=== PATIENT | female | born 1965 | race Caucasian/White ===

== ENCOUNTER 2022-03-11 15:43 | Inpatient (IN) | payer MEDICAID, MEDICARE ==
[~2022-03-11] VITALS: Ht 160 cm; Wt 66.2 kg
[~2022-03-11 15:43] MED LIST: AMLO10TA80 PO; CALC-38 PO; CINA30 PO; ISON300T19 PO; NEPVIT PO; PYRI-5 PO; REN800 PO; TRAZ-251 PO
[2022-03-11] MEDS ORDERED: DILTIAZEM HCL 5MG/ML 5ML VIAL IV ONE (16:30)
[2022-03-11 16:46] LABS: BASOPHILS % 1.3 % (0.0-2.0); EOSINOPHILS % 1.7 % (0.0-5.0); HEMATOCRIT. 30.3 % (36.0-48.0); HEMOGLOBIN. 9.8 g/dL (12.0-16.0); LYMPHOCYTES % 27.4 % (20.0-50.0); MEAN CORPUSCULAR HEMOGLOBIN 32.4 pg (28.0-32.0); MEAN CORPUSCULAR VOLUME 100.5 fL (81.0-99.0); MEAN PLATELET VOLUME 10.6 fl (7.4-10.4); MONOCYTES % 10.6 % (2.0-8.0); PLATELET 190 x1000/uL (130-400); RED BLOOD CELL COUNT 3.02 mill/uL (4.2-5.4); RED CELL DISTRIBUTION WIDTH 14.6 % (11.6-14.6)
[2022-03-11] MEDS: NITROGLYCERIN 0.4MG TABLET SL SL PRN ×2 (16:47→20:43)
[2022-03-11 16:54] LABS: CHLORIDE 101 mEq/L (98-107)
[2022-03-11] MEDS ORDERED: CALCIUM CHLORIDE 1GM/10ML SYR IV ONE (19:00)
[2022-03-11] MEDS ORDERED: MORPHINE SULFATE 4 MG/ML CPJ (NOT FOR IM USE) IV ONE (20:15)
[2022-03-12] VITALS (7 sets, daily range): BP systolic 138–184; BP diastolic 74–106
[2022-03-12] MEDS ORDERED: HYDROCODONE/ACETAMINOPHEN 5/325MG TABLET PO PRN (02:30)
[2022-03-12] MEDS ORDERED: ONDANSETRON HCL 4MG/2ML INJ IV PRN (02:30)
[2022-03-12] MEDS ORDERED: NALOXONE HCL 0.4MG/ML VIAL IV PRN (02:45)
[2022-03-12] MEDS: CLONIDINE 0.1MG TABLET PO PRN ×2 (05:55→12:17)
[2022-03-12 06:48] LABS: BASOPHILS % 0.8 % (0.0-2.0); EOSINOPHILS % 0.6 % (0.0-5.0); HEMATOCRIT. 30.1 % (36.0-48.0); HEMOGLOBIN. 9.8 g/dL (12.0-16.0); LYMPHOCYTES % 22.2 % (20.0-50.0); MEAN CORPUSCULAR HEMOGLOBIN 32.1 pg (28.0-32.0); MEAN CORPUSCULAR VOLUME 98.3 fL (81.0-99.0); MEAN PLATELET VOLUME 10.1 fl (7.4-10.4); MONOCYTES % 7.8 % (2.0-8.0); NEUTROPHILS % 68.6 % (40.0-76.0); PLATELET 153 x1000/uL (130-400); RED BLOOD CELL COUNT 3.06 mill/uL (4.2-5.4); RED CELL DISTRIBUTION WIDTH 14.2 % (11.6-14.6)
[2022-03-12] MEDS: ASPIRIN 81MG TABLET PO SCH (08:33)
[2022-03-12] MEDS ORDERED: DILTIAZEM HCL 5MG/ML 5ML VIAL IV PRN (11:30)
[2022-03-12] MEDS ORDERED: WARF7.5T48 PO (11:37)
[2022-03-12] MEDS ORDERED: DILT360C31 PO (11:37)
[2022-03-12] MEDS ORDERED: DILT360T13 PO (11:39)
[2022-03-12] MEDS: DILTIAZEM HCL 30MG TABLET PO SCH ×2 (12:18→18:04)
[2022-03-12 14:31] LABS: HEPATITIS B SURFACE ANTIGEN NEGATIVE
[2022-03-12 18:29] LABS: INR 1.3; PROTHROMBIN TIME 13.3 sec (9.6-11.0)
[2022-03-12] MEDS ORDERED: WARFARIN SODIUM 7.5MG TABLET PO NR (19:00)
[2022-03-12] MEDS: ACETAMINOPHEN 325MG TABLET PO PRN (20:41)
[2022-03-13] MEDS: DILTIAZEM HCL 30MG TABLET PO SCH ×4 (00:07→18:54)
[2022-03-13 04:00] VITALS: BP 134/82
[2022-03-13] MEDS: ACETAMINOPHEN 325MG TABLET PO PRN ×2 (05:00→13:42)
[2022-03-13 07:34] LABS: INR 1.2; PROTHROMBIN TIME 12.9 sec (9.6-11.0)
[2022-03-13 07:40] LABS: PHOSPHORUS 7.8 mg/dL (2.5-4.9)
[2022-03-13 08:00] VITALS: BP 164/83
[2022-03-13] MEDS: ASPIRIN 81MG TABLET PO SCH (08:15)
[2022-03-13] MEDS: ENOXAPARIN 30MG/0.3ML SYR SUBCUT SCH (09:01)
[2022-03-13 12:00] VITALS: BP 158/97
[2022-03-13] MEDS: NITROGLYCERIN 0.4MG TABLET SL SL PRN (13:42)
[2022-03-13] MEDS: FOLIC ACID/VITAMIN B COMP W-C TABLET PO SCH (13:56)
[2022-03-13 16:00] VITALS: BP 132/80
[2022-03-13] MEDS: SEVELAMER CARBONATE 800 MG TABLET PO SCH (17:29)
[2022-03-13] MEDS ORDERED: WARFARIN SODIUM 7.5MG TABLET PO SCH (18:00)
[2022-03-13 20:00] VITALS: BP 140/88
[2022-03-14] VITALS: BP 152/102
[2022-03-14] MEDS: DILTIAZEM HCL 30MG TABLET PO SCH ×3 (00:35→12:53)
[2022-03-14] MEDS: ACETAMINOPHEN 325MG TABLET PO PRN (00:47)
[2022-03-14 04:00] VITALS: BP 144/88
[2022-03-14 06:30] LABS: BASOPHILS % 0.7 % (0.0-2.0); EOSINOPHILS % 4.3 % (0.0-5.0); HEMATOCRIT. 28.9 % (36.0-48.0); HEMOGLOBIN. 9.6 g/dL (12.0-16.0); LYMPHOCYTES % 29.6 % (20.0-50.0); MEAN CORPUSCULAR HEMOGLOBIN 32.5 pg (28.0-32.0); MEAN CORPUSCULAR VOLUME 97.8 fL (81.0-99.0); MEAN PLATELET VOLUME 9.6 fl (7.4-10.4); MONOCYTES % 8.8 % (2.0-8.0); NEUTROPHILS % 56.6 % (40.0-76.0); PLATELET 155 x1000/uL (130-400); RED BLOOD CELL COUNT 2.95 mill/uL (4.2-5.4); RED CELL DISTRIBUTION WIDTH 14.1 % (11.6-14.6)
[2022-03-14 06:38] LABS: INR 1.2; PROTHROMBIN TIME 12.5 sec (9.6-11.0)
[2022-03-14 06:41] LABS: PHOSPHORUS 6.2 mg/dL (2.5-4.9)
[2022-03-14 08:00] VITALS: BP 155/101
[2022-03-14] MEDS: SEVELAMER CARBONATE 800 MG TABLET PO SCH ×2 (08:34→12:53)
[2022-03-14] MEDS: FOLIC ACID/VITAMIN B COMP W-C TABLET PO SCH (08:34)
[2022-03-14] MEDS: ENOXAPARIN 30MG/0.3ML SYR SUBCUT SCH (08:34)
[2022-03-14] MEDS: ASPIRIN 81MG TABLET PO SCH (08:34)
[2022-03-14 12:00] VITALS: BP 154/95
[2022-03-14] MEDS ORDERED: DILT360C31 PO (12:49)
[2022-03-14] MEDS ORDERED: APIX2.5T MT (12:49)
[2022-03-14 13:30] VITALS: BP 154/95
[2022-03-14] MEDS ORDERED: WARFARIN SODIUM 7.5MG TABLET PO SCH (18:00)
== END 2022-03-14 14:30 | disposition home or self-care (01) | DRG 137 ==
LOC: ER 15:43 → EDBD 15:43 → 6WST 20:18 → ENRESERV 23:05 → 7EST 03-12 23:35
PROVIDERS: ADMIT Internal Medicine; ATTEND Internal Medicine
PROC: 5A1D70Z Performance of Urinary Filtration, Intermittent, Less than 6 Hours Per Day (ICD-10-PCS; principal; 2022-03-11)
PROC: 5A1D70Z Performance of Urinary Filtration, Intermittent, Less than 6 Hours Per Day (ICD-10-PCS; 2022-03-13)
DX: U07.1 COVID-19 (principal); J96.01 Acute respiratory failure with hypoxia; J12.82 Pneumonia due to coronavirus disease 2019; I50.33 Acute on chronic diastolic (congestive) heart failure; D63.1 Anemia in chronic kidney disease; E83.39 Other disorders of phosphorus metabolism; I24.9 Acute ischemic heart disease, unspecified; N18.6 End stage renal disease; I48.91 Unspecified atrial fibrillation; I13.2 Hypertensive heart and chronic kidney disease with heart failure and with stage 5 chronic kidney disease, or end stage renal disease; E87.5 Hyperkalemia; I16.0 Hypertensive urgency; R19.7 Diarrhea, unspecified; R74.01 Elevation of levels of liver transaminase levels; E11.22 Type 2 diabetes mellitus with diabetic chronic kidney disease; Z99.2 Dependence on renal dialysis; Z79.01 Long term (current) use of anticoagulants; Z79.899 Other long term (current) drug therapy; Z86.011 Personal history of benign neoplasm of the brain; Z91.19 Patient's noncompliance with other medical treatment and regimen
CPT/HCPCS: 36415; 71045; 80048; 80053; 80061; 80069; 82962; 83036; 83605; 83880; 84443; 84484; 85025; 86705; 86709; 86803; 87340; 87426; 93005; 93306; 99285; J1650; J2270; J2405; J3490